=== PATIENT | female | born 1980 | race Caucasian/White ===

== ENCOUNTER 2023-02-25 13:28 | Emergency (ER) | payer SELFPAY ==
[2023-02-25 13:38] VITALS: BP 123/80; PULSE 70; RESP 18; TEMP 36.7; O2SAT 98; BMI 22.6
== END 2023-02-25 14:35 | disposition left against medical advice (07) ==
PROVIDERS: Emergency Provider Emergency Medicine
CPT/HCPCS: 99281

== ENCOUNTER 2023-02-25 19:21 | Emergency (ER) | payer SELFPAY ==
[2023-02-25 19:30] VITALS: BP 117/83; PULSE 83; RESP 16; TEMP 36.8; O2SAT 97; BMI 22.6
== END 2023-02-25 22:30 | disposition left against medical advice (07) ==
PROVIDERS: Emergency Provider Emergency Medicine
CPT/HCPCS: 99281